=== PATIENT | female | born 1990 | race Caucasian/White ===

== ENCOUNTER 2017-09-16 10:51 | Emergency (ER) | payer MEDICAID ==
[2017-09-16 10:51] VITALS: BMI 41.5
[2017-09-16 10:59] VITALS: TEMP 98.5; O2SAT 99
--- NOTE | 2017-09-16 11:31 | C.PDOC ---
History Of Present Illness 26yo female with no past medical history, presents to ER for evaluation for right sided dental pain, which has been worsening over the past couple days. She states 1 month ago, she was seen by a dentist and was told she needs a root canal which is scheduled for 09/19/17. She has been taking Advil 400mg every 4 hours with transient relief. She denies any difficulty breathing, difficulty swallowing, throat swelling, fevers or chills. PMD: None provided Time Seen by Provider: 09/16/17 11:04 Chief Complaint (Nursing): Dental Pain History Per: Patient History/Exam Limitations: no limitations Onset/Duration Of Symptoms: Days Current Symptoms Are (Timing): Still Present Quality: Positive for: "Pain" Additional History Per: Patient Past Medical History Reviewed: Historical Data, Nursing Documentation, Vital Signs Vital Signs: Last Vital Signs Temp 98.5 F 09/16/17 10:57 Pulse 90 09/16/17 11:31 Resp 16 09/16/17 11:31 BP 140/86 09/16/17 11:31 Pulse Ox 99 09/16/17 14:42 - Medical History PMH: No Chronic Diseases Denies: Diabetes, Hepatitis, HIV, HTN, Chronic Kidney Disease, Seizures, Sexually Transmitted Disease Surgical History: No Surg Hx - [facility] Procedures MONITORING NOS (10/08/14) LOW CERVICAL (10/08/14) Family History: States: No Known Family Hx, Unknown Family Hx - Social History Hx Tobacco Use: No Hx Alcohol Use: No Hx Substance Use: No - Immunization History Hx Tetanus Toxoid Vaccination: Yes Hx Influenza Vaccination: No Hx Pneumococcal Vaccination: No Review Of Systems Except As Marked, All Systems Reviewed And Found Negative. Constitutional: Negative for: Fever, Chills ENT: Positive for: Other (dental pain). Negative for: Mouth Swelling, Throat Pain, Throat Swelling Physical Exam - Physical Exam Appears: Non-toxic, No Acute Distress Skin: Warm, Dry Head: Atraumatic, Normacephalic Eye(s): bilateral: Normal Inspection, PERRL, EOMI Ear(s): Bilateral: Normal Nose: Normal Oral Mucosa: Moist Teeth: Tender To Palpation (right maxilar molar tenderness, with filling) Gingiva: No Swelling, Tender, No Abscess Throat: Normal, No Erythema, No Exudate Neck: Normal ROM, Supple Chest: Symmetrical Cardiovascular: Rhythm Regular Respiratory: Normal Breath Sounds Extremity: Bilateral: Atraumatic Neurological/Psych: Oriented x3 ED Course And Treatment O2 Sat by Pulse Oximetry: 99 (RA) Pulse Ox Interpretation: Normal Progress Note: Patient given viscous Lidocaine and Tramadol for pain relief. On re-evaluation, patient reports improvement in pain. She is stable for discharge home, instructed to follow up with her dentist as per her appointment. Disposition - Disposition Disposition: HOSPITALIZED Disposition Time: 11:30 Condition: STABLE Additional Instructions: Follow up with the dentist as scheduled. Return to ER if symptoms persist or worsen. Prescriptions: Benzocaine 7.5% [Orajel] 7.5 gel MM TID #1 tube traMADol [Ultram] 50 mg PO Q8 #15 tab Instructions: Dental Pain (DC) Forms: [employer] (Mosotho) - Clinical Impression Clinical Impression: Pain, dental - PA / HARDNESS INSPECTOR / Resident Statement MD/DO has reviewed & agrees with the documentation as recorded. - Scribe Statement The provider has reviewed the documentation as recorded by the Scribe (Lexus Grimaldo) Provider Attestation: All medical record entries made by the Scribe were at my direction and personally dictated by me. I have reviewed the chart and agree that the record accurately reflects my personal performance of the history, physical exam, medical decision making, and the department course for this patient. I have also personally directed, reviewed, and agree with the discharge instructions and disposition.
[2017-09-16 11:32] VITALS: BP 140/86; PULSE 90; RESP 16
== END 2017-09-16 11:34 | disposition home or self-care (01) ==
LOC: C.ER 10:51
DX: K08.89 Other specified disorders of teeth and supporting structures (principal)

== ENCOUNTER 2017-10-03 09:56 | Emergency (ER) | payer MEDICAID ==
[2017-10-03 09:56] VITALS: BMI 41.5
[2017-10-03 10:01] VITALS: TEMP 97.9; O2SAT 98
--- NOTE | 2017-10-03 11:16 | C.PDOC ---
History Of Present Illness 27 y/o female with history of Gastric sleeve 2 months ago presents to ED with complaints of sharp abdominal pain for 2 days worse when sitting straight. Patient admits to 60lbs weight loss since surgery and reports normal appetite and last bowel movement this morning. Patient denies nausea, vomiting, diarrhea or any other complaints at this time. (Heriberto Magana) Time Seen by Provider: 10/03/17 10:14 Chief Complaint (Nursing): Abdominal Pain Past Medical History - Medical History PMH: Denies: Diabetes, Hepatitis, HIV, HTN, Chronic Kidney Disease, Seizures, Sexually Transmitted Disease Family History: States: Unknown Family Hx - Social History Hx Tobacco Use: No Hx Alcohol Use: No Hx Substance Use: No - Immunization History Hx Tetanus Toxoid Vaccination: Yes Hx Influenza Vaccination: No Hx Pneumococcal Vaccination: No Vital Signs: Last Vital Signs Temp 97.9 F 10/03/17 09:59 Pulse 81 10/03/17 09:59 Resp 16 10/03/17 09:59 BP 114/77 10/03/17 09:59 Pulse Ox 98 10/03/17 11:16 - [facility] Procedures MONITORING NOS (10/08/14) LOW CERVICAL (10/08/14) ED Course And Treatment O2 Sat by Pulse Oximetry: 98 Medical Decision Making Medical Decision Making: Impression: Case discussed with ER attending Dr Magana Plan: Progress: (Pooja Perkins) Disposition - Disposition Forms: [employer] (Slovenian)
--- NOTE | 2017-10-03 11:45 | C.PDOC ---
History Of Present Illness <Pooja Perkins - Last Filed: 10/03/17 16:56> <Heriberto Magana - Last Filed: 10/05/17 14:32> 27 y/o female with history of Gastric sleeve 2 months ago presents to ED with complaints of sharp LUQ abdominal pain for 2 days worse when sitting straight. Patient admits to 60lbs weight loss since surgery and reports normal appetite and last bowel movement this morning. Patient denies nausea, vomiting, diarrhea or any other complaints at this time. When seen at bedside first time patient stated she did want to be seen and would go see surgeon in [place], patient returned to bed and said she could not go see Surgeon today and requested to be seen in ED. (Pooja Perkins) History Per: Patient History/Exam Limitations: no limitations Onset/Duration Of Symptoms: Days Current Symptoms Are (Timing): Still Present Location Of Pain/Discomfort: Diffuse Radiation Of Pain To:: None Quality Of Discomfort: Sharp <Pooja Perkins - Last Filed: 10/03/17 16:56> <Heriberto Magana - Last Filed: 10/05/17 14:32> Time Seen by Provider: 10/03/17 10:14 Chief Complaint (Nursing): Abdominal Pain Past Medical History Reviewed: Historical Data, Nursing Documentation, Vital Signs - Medical History PMH: No Chronic Diseases Surgical History: No Surg Hx Family History: States: No Known Family Hx - Social History Hx Tobacco Use: No Hx Alcohol Use: No Hx Substance Use: No - Immunization History Hx Tetanus Toxoid Vaccination: Yes Hx Influenza Vaccination: No Hx Pneumococcal Vaccination: No <Pooja Perkins - Last Filed: 10/03/17 16:56> Vital Signs: Last Vital Signs Temp 97.9 F 10/03/17 12:16 Pulse 78 10/03/17 12:16 Resp 18 10/03/17 12:16 BP 108/79 10/03/17 12:16 Pulse Ox 98 10/03/17 17:02 - [facility] Procedures MONITORING NOS (10/08/14) LOW CERVICAL (10/08/14) Review Of Systems Constitutional: Negative for: Fever, Chills Gastrointestinal: Positive for: Abdominal Pain. Negative for: Nausea, Vomiting , Diarrhea Genitourinary: Negative for: Dysuria, Hematuria Musculoskeletal: Negative for: Back Pain Skin: Negative for: Rash <Pooja Perkins - Last Filed: 10/03/17 16:56> Physical Exam - Physical Exam Appears: Non-toxic, No Acute Distress Skin: Warm, Dry, No Rash Head: Atraumatic, Normacephalic Eye(s): bilateral: Normal Inspection Oral Mucosa: Moist Neck: Normal ROM, Supple Cardiovascular: Rhythm Regular Respiratory: Normal Breath Sounds, No Rales, No Rhonchi, No Wheezing Gastrointestinal/Abdominal: Soft, Tenderness (Minimal tenderness on deep palpation to LUQ ), No Guarding, No Rebound Back: No CVA Tenderness, No Paraspinal Tenderness Neurological/Psych: Oriented x3, Normal Speech, Normal Cognition <Pooja Perkins - Last Filed: 10/03/17 16:56> ED Course And Treatment O2 Sat by Pulse Oximetry: 98 (RA) Pulse Ox Interpretation: Normal <Pooja Perkins - Last Filed: 10/03/17 16:56> Medical Decision Making: Impression: Upper abdomen pain, Hx of Gastric sleeve Plan: Upper GI series, Urine and Contact surgeon Progress: 1119- Paged Dr. 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 None of the tests have been performed. I explain to patient her evaluation is not complete and we do not have a known diagnosis and unable to explain her condition. The patient states she cannot stay and needs to leave. I explain any unknown diagnosis can put her at risk for sepsis, disability and even . The patient has the capacity to make this informed decision and understands the clinical situation and my explanation of the risks of leaving. The patient voluntarily accepts these risks, and a signed AMA form documenting our conversation was obtained. Dr Basilio was made aware the patient left AMA. He will contact his patient ( Pooja Perkins) Disposition Counseled Patient/Family Regarding: Diagnosis, Need For Followup - Disposition Disposition Time: 12:22 - POA Present On Arrival: None <Pooja Perkins - Last Filed: 10/03/17 16:56> <Heriberto Magana - Last Filed: 10/05/17 14:32> - Disposition Disposition: AGAINST MEDICAL ADVICE Condition: GOOD - Clinical Impression Clinical Impression: Left against medical advice, LUQ abdominal pain - PA / FACILITIES LOCATOR / Resident Statement / has reviewed & agrees with the documentation as recorded. - Scribe Statement The provider has reviewed the documentation as recorded by the Scribe <Pooja Perkins - Last Filed: 10/03/17 16:56> - PA / FACILITIES LOCATOR / Resident Statement / has reviewed & agrees with the documentation as recorded. (Pt left AMA) <Heriberto Magana - Last Filed: 10/05/17 14:32> - Scribe Statement Darrick Quesada All medical record entries made by the Vitoibe were at my direction and personally dictated by me. I have reviewed the chart and agree that the record accurately reflects my personal performance of the history, physical exam, medical decision making, and the department course for this patient. I have also personally directed, reviewed, and agree with the discharge instructions and disposition. (Pojoa Perkins)
[2017-10-03 11:56] LABS: HCG,QUALITATIVE URINE NEGATIVE (NEGATIVE)
[2017-10-03 12:08] LABS: SQUAMOUS EPITHIAL 50 /hpf (0-5); URINE BACTERIA RARE (<OCC); URINE BILIRUBIN NEGATIVE (NEGATIVE); URINE BLOOD NEGATIVE (NEGATIVE); URINE CLARITY Hazy (Clear); URINE COLOR Yellow (YELLOW); URINE GLUCOSE (UA) NORMAL (Normal); URINE LEUKOCYTE ESTERASE 2+ Leu/uL (Negative); URINE PROTEIN 1+ mg/dL (NEGATIVE)
[2017-10-03] MEDS ORDERED: Iohexol 240 (50 ml) ONE ×2 (12:13→12:19)
[2017-10-03 12:36] VITALS: BP 108/79; PULSE 78; RESP 18
== END 2017-10-03 12:35 | disposition left against medical advice (07) ==
LOC: C.ER 09:56
DX: R10.12 Left upper quadrant pain (principal); Z98.84 Bariatric surgery status

== ENCOUNTER 2018-06-05 08:40 | Outpatient (CLI) | payer MEDICAID | END 2018-06-05 08:41 | disposition home or self-care (01) | LOC: C.SPRAD 08:40 | DX: N63.0 Unspecified lump in unspecified breast (principal) ==